=== PATIENT | female | born 1980 ===

== ENCOUNTER 2024-09-23 06:27 | Day surgery (SDC) | payer BC, SELFPAY | END 2024-09-23 13:49 | disposition home or self-care (01) | LOC: GI 06:27 | PROVIDERS: ATTENDING PHYSICIAN Internal Medicine Gastroenterology | DX: Z12.11 Encounter for screening for malignant neoplasm of colon (principal); R12 Heartburn; R07.89 Other chest pain; K31.7 Polyp of stomach and duodenum; K22.89 Other specified disease of esophagus; D12.0 Benign neoplasm of cecum; D12.2 Benign neoplasm of ascending colon; Z80.0 Family history of malignant neoplasm of digestive organs; Z83.719 Family history of colon polyps, unspecified | CPT/HCPCS: 45385; 43239; 88305 ==